=== PATIENT | male | born 1950 | race Caucasian/White ===

== ENCOUNTER 2018-08-11 13:14 | Observation (INO) | payer OTHER ==
[~2018-08-11] VITALS: Ht 182.9 cm; Wt 98.0 kg
[2018-08-11] MEDS ORDERED: DEXTROSE 50% SYRINGE 50 ML IV ONE ×3 (13:39→14:30)
[2018-08-11] MEDS ORDERED: DEXTROSE 50% SYRINGE 50 ML IV STA (13:40)
[2018-08-11 14:08] LABS: BASOPHILS # (AUTO) 0.1 (0.0-0.1); BASOPHILS % 0.6 % (0.0-1.0); EOSINOPHILS # (AUTO) 0.2 (0.0-0.4); EOSINOPHILS % 1.6 % (0.0-6.0); HEMATOCRIT 45.3 % (38.2-49.6); HEMOGLOBIN 15.8 g/dL (14.0-18.0); LYMPHOCYTES # (AUTO) 1.2 (1.0-3.2); LYMPHOCYTES % 11.2 % (18.0-39.1); MEAN CORPUSCULAR HEMOGLOBIN 31.8 pg (28-32); MEAN CORPUSCULAR HGB CONC 34.9 g/dL (31-35); MEAN CORPUSCULAR VOLUME 91.1 fL (81-99); MONOCYTES # (AUTO) 1.1 (0.2-0.8); MONOCYTES % 9.6 % (4.4-11.3); NEUTROPHILS # (AUTO) 8.5 (2.1-6.9); NEUTROPHILS % 76.4 % (38.7-80.0); PLATELET COUNT 194 x10e3/uL (140-360); RED BLOOD COUNT 4.97 x10e6/uL (4.3-5.7); RED CELL DISTRIBUTION WIDTH 13.2 % (11.7-14.4)
[2018-08-11 14:14] LABS: INR 1.09; PROTHROMBIN TIME 13.3 seconds (11.9-14.5)
[2018-08-11 14:15] LABS: PARTIAL THROMBOPLASTIN TIME 26.4 seconds (23.8-35.5)
[2018-08-11 14:23] LABS: ALANINE AMINOTRANSFERASE 25 IU/L (0-55); ALBUMIN/GLOBULIN RATIO 1.2 (0.8-2.0); ALKALINE PHOSPHATASE 78 IU/L (40-150); AMYLASE 43 U/L (25-125); ANION GAP 15.8 mmol/L (8-16); BLOOD UREA NITROGEN 23 mg/dL (7-26); BUN/CREATININE RATIO 18 (6-25); CALCIUM 9.6 mg/dL (8.4-10.2); CARBON DIOXIDE 24 mmol/L (22-29); CHLORIDE 107 mmol/L (98-107); CREATINE KINASE 136 IU/L (30-200); CREATININE, SERUM 1.25 mg/dL (0.72-1.25); EST GLOMERULAR FILTRATION RATE 57 ML/MIN (60-); LIPASE 48 U/L (8-78); POTASSIUM 3.8 mmol/L (3.5-5.1); SODIUM 143 mmol/L (136-145)
[2018-08-11 14:25] LABS: GLUCOSE 37 mg/dL (74-118)
[2018-08-11 15:34] LABS: COLOR,URINE YELLOW (YELLOW); KETONES,URINE NEGATIVE (NEGATIVE); LEUKOCYTE ESTERASE ,URINE NEGATIVE (NEGATIVE); NITRITE,URINE NEGATIVE (NEGATIVE); PROTEIN,URINE DIPSTICK TRACE (NEGATIVE); URINE UROBILINOGEN 0.2 mg/dL (0.2 - 1)
[2018-08-11 15:35] LABS: BILIRUBIN,URINE NEGATIVE (NEGATIVE); CLARITY,URINE CLEAR (CLEAR)
[2018-08-11 15:43] LABS: EPITHELIAL CELLS,URINE RARE /LPF
--- NOTE | 2018-08-11 16:56 | Diagnostic Imaging Report ---
EXAMINATION: CHEST SINGLE (PORTABLE) INDICATION: Low blood sugar. \S\ERMD ORDER \S\[id number] \S\1500 \S\Y COMPARISON: None FINDINGS: AP view TUBES and LINES: Dual-lead left chest wall cardiac device in place. LUNGS: Limited by body habitus and low lung volumes. There is no evidence of pneumonia or pulmonary edema. Minimal left basilar subsegmental atelectasis. PLEURA: No pleural effusion or pneumothorax. HEART AND MEDIASTINUM: The cardiomediastinal silhouette is unremarkable. BONES AND SOFT TISSUES: No acute osseous lesion. Soft tissues are unremarkable. UPPER ABDOMEN: No free air under the diaphragm. IMPRESSION: Limited as above. No acute thoracic abnormality. Signed by: Dr. Vidal Tan MD on 08/11/2018 4:53 PM
[2018-08-11] MEDS ORDERED: ONDANSETRON HCL INJ 2 MG/ML VIAL IV PRN (18:00)
[2018-08-11] MEDS ORDERED: MORPHINE SULFATE 2 MG/ML SYR IV PRN (18:00)
[2018-08-11] MEDS ORDERED: DEXTROSE 50% SYRINGE 50 ML IV PRN (18:00)
[2018-08-11] MEDS ORDERED: MORPHINE SULFATE INJ 4 MG/ML INJ IV PRN (18:15)
[2018-08-11 20:00] VITALS: BP 134/78
[2018-08-11] MEDS ORDERED: MICARDIS40 MG PO (20:21)
[2018-08-11] MEDS ORDERED: CARVEDILOL12.5 MG PO (20:21)
[2018-08-11] MEDS ORDERED: JANUMET 50-1,01 EACH PO (20:21)
[2018-08-11] MEDS ORDERED: AMLODIPINE BESY10 MG PO (20:21)
[2018-08-11] MEDS ORDERED: PRAVASTATIN SOD20 MG PO (20:21)
[2018-08-11] MEDS ORDERED: LEVEMIR100 UNIT/1 SQ (20:21)
[2018-08-11] MEDS ORDERED: POTASSIUM CHLO20 ME1 PO (20:21)
[2018-08-11] MEDS ORDERED: JARDIANCE PO (20:21)
[2018-08-11] MEDS ORDERED: FUROSEMIDE40 MG PO (20:21)
[2018-08-11] MEDS: INSULIN REGULAR, HUMAN 100 UNIT/1 ML 3ML VIAL SQ SCH (21:00)
[2018-08-11 22:41] VITALS: BP 134/78
[2018-08-11 23:27] LABS: CREATINE KINASE 90 IU/L (30-200)
[2018-08-12] VITALS: BP 116/68
[2018-08-12 04:00] VITALS: BP 98/56
[2018-08-12 05:50] LABS: CREATINE KINASE 68 IU/L (30-200)
[2018-08-12 06:40] LABS: ANION GAP 13.2 mmol/L (8-16); CALCIUM 8.9 mg/dL (8.4-10.2); CREATININE, SERUM 1.26 mg/dL (0.72-1.25); POTASSIUM 4.2 mmol/L (3.5-5.1)
[2018-08-12] MEDS: INSULIN REGULAR, HUMAN 100 UNIT/1 ML 3ML VIAL SQ SCH ×2 (07:30→11:30)
[2018-08-12 07:41] VITALS: BP 132/68
[2018-08-12 12:09] VITALS: BP 135/72
[2018-08-12 12:30] LABS: CREATINE KINASE 71 IU/L (30-200)
== END 2018-08-12 14:02 | disposition home or self-care (01) ==
LOC: ER 13:14 → ERHOLD 17:55 → IMCU 18:45
DX: E11.649 Type 2 diabetes mellitus with hypoglycemia without coma (principal); Z79.4 Long term (current) use of insulin; I25.10 Atherosclerotic heart disease of native coronary artery without angina pectoris; I11.0 Hypertensive heart disease with heart failure; I50.9 Heart failure, unspecified; Z95.0 Presence of cardiac pacemaker; Z82.49 Family history of ischemic heart disease and other diseases of the circulatory system
CPT/HCPCS: 36415 ×2; 71045; 80048; 80053; 81001; 82150; 82550 ×2; 82553 ×2; 82948 ×2; 83690; 83735; 84484 ×2; 85025; 85610; 85730; 93005 ×2; 99284; G0378 ×2; J7799